=== PATIENT | male | born 1935 | race Caucasian/White ===

== ENCOUNTER 2016-12-08 21:09 | Emergency (ER) | payer OTHER ==
[2016-12-08 22:31] LABS: HEMOGLOBIN 14.6 gm/dl (14.0-17.5); RED BLOOD COUNT 4.44 M/UL (4.20-5.50); WHITE BLOOD COUNT 13.2 K/UL (4.5-11.0)
== END 2016-12-09 02:50 | disposition home or self-care (01) ==
LOC: ER1 21:09
PROVIDERS: Family Medicine
DX: K80.20 Calculus of gallbladder without cholecystitis without obstruction (principal); E11.22 Type 2 diabetes mellitus with diabetic chronic kidney disease; N18.9 Chronic kidney disease, unspecified; Z86.79 Personal history of other diseases of the circulatory system; Z88.6 Allergy status to analgesic agent; Z79.899 Other long term (current) drug therapy
CPT/HCPCS: 36415; 80053; 81001; 82150; 82550; 82553; 83605; 83690; 83874; 84484; 85025; 93005; 99284

== ENCOUNTER → 2017-01-27 | Outpatient (CLI) | payer OTHER | LOC: LAB 11:49 | PROVIDERS: Nurse Practitioner Family | DX: I48.91 Unspecified atrial fibrillation (principal) | CPT/HCPCS: 36415; 80053 ==

== ENCOUNTER 2020-11-19 10:07 | Observation (INO) | payer MEDICARE ==
[~2020-11-19] VITALS: Ht 167.6 cm; Wt 72.3 kg
[~2020-11-19 10:07] MED LIST: COREG 25MG TAB25 MG PO; ELIQUIS2.5 MG PO; FLOMAX 0.4 MG0.4 MG PO; LASIX40 MG PO; MEDROL DOSEPAK 24 MG PO; NITRO-TIME2.5 MG PO; NITROGLYCERIN0.4 MG SL; NOVOLOG100 UNIT/1 SC; PRINIVIL10 MG PO; TOBRADEX EYE O3.5 GM EYELF; VALTREX 500 MG500 MG PO; VIBRAMYCIN100 MG PO; VITAMIN D21250 MCG PO; ZANTAC 150 MG150 MG PO; ZOCOR10 MG PO
[2020-11-19] MEDS ORDERED: SYNTHROID100 MCG PO (11:49)
[2020-11-19] MEDS ORDERED: LANTUS100 UNIT/1 SC (11:53)
[2020-11-19 11:55] LABS: HEMOGLOBIN 16.5 gm/dl (14.0-17.5); RED BLOOD COUNT 4.84 M/UL (4.20-5.50); WHITE BLOOD COUNT 10.6 K/UL (4.5-11.0)
[2020-11-19] MEDS ORDERED: CLARITIN10 MG PO (15:41)
[2020-11-19] MEDS ORDERED: ARTIFICIAL TEAR15 M6 EYEBOTH (15:41)
[2020-11-19] MEDS ORDERED: LASIX20 MG PO (15:41)
[2020-11-19] MEDS ORDERED: NOVOLOG100 UNIT/1 SC (15:42)
[2020-11-19] MEDS ORDERED: SYMBICORT 16010.2 GM INH (15:43)
[2020-11-19] MEDS ORDERED: SENNA8.6 MG PO (15:43)
[2020-11-19] MEDS ORDERED: ALBUTEROL0.63 MG/3 INH (15:44)
[2020-11-20 06:26] LABS: RED BLOOD COUNT 4.75 M/UL (4.20-5.50); WHITE BLOOD COUNT 11.2 K/UL (4.5-11.0)
[2020-11-20 15:22] LABS: HEMOGLOBIN 15.5 gm/dl (14.0-17.5); RED BLOOD COUNT 4.58 M/UL (4.20-5.50); WHITE BLOOD COUNT 10.6 K/UL (4.5-11.0)
== END 2020-11-21 13:13 | disposition home or self-care (01) ==
LOC: ER1 10:07 → M/S 15:17 → CDU 15:17 → M/S 15:17
PROVIDERS: Physician Assistant Medical; Student in an Organized Health Care Education/Training Program; ADMIT Internal Medicine Infectious Disease
DX: I49.3 Ventricular premature depolarization (principal); I47.2 Ventricular tachycardia; I49.5 Sick sinus syndrome; N17.9 Acute kidney failure, unspecified; I13.0 Hypertensive heart and chronic kidney disease with heart failure and stage 1 through stage 4 chronic kidney disease, or unspecified chronic kidney disease; E11.22 Type 2 diabetes mellitus with diabetic chronic kidney disease; N18.30 Chronic kidney disease, stage 3 unspecified; I50.32 Chronic diastolic (congestive) heart failure; R77.8 Other specified abnormalities of plasma proteins; I25.10 Atherosclerotic heart disease of native coronary artery without angina pectoris; E78.5 Hyperlipidemia, unspecified; Z95.1 Presence of aortocoronary bypass graft; Z95.5 Presence of coronary angioplasty implant and graft; Z88.1 Allergy status to other antibiotic agents; Z88.8 Allergy status to other drugs, medicaments and biological substances; Z79.01 Long term (current) use of anticoagulants; Z79.4 Long term (current) use of insulin; Z79.899 Other long term (current) drug therapy; Z79.891 Long term (current) use of opiate analgesic; Z95.0 Presence of cardiac pacemaker; Z20.822 Contact with and (suspected) exposure to COVID-19
CPT/HCPCS: 36415; 71045; 80048; 80053; 82550; 82553; 82962; 83735; 83874; 84100; 84443; 84484; 85025; 85027; 85610; 85730; 93005; 94640; 94664; 94760; 96372; 96374; 99285; G0378; U0002

== ENCOUNTER 2021-05-18 16:08 | Inpatient (IN) | payer MEDICARE ==
[~2021-05-18] VITALS: Ht 167.6 cm; Wt 76.4 kg
[~2021-05-18 16:08] MED LIST changes: +ARTIFICIAL TEAR15 M6 EYEBOTH; +CLARITIN10 MG PO; +LANTUS100 UNIT/1 SC; -NITRO-TIME2.5 MG PO; -PRINIVIL10 MG PO; +SENNA8.6 MG PO; +SYMBICORT 16010.2 GM INH; +SYNTHROID100 MCG PO
[2021-05-18 16:47] LABS: RED BLOOD COUNT 4.74 M/UL (4.20-5.50); WHITE BLOOD COUNT 10.9 K/UL (4.5-11.0)
[2021-05-19 01:37] LABS: HEMOGLOBIN 16.1 gm/dl (14.0-17.5); RED BLOOD COUNT 4.73 M/UL (4.20-5.50); WHITE BLOOD COUNT 10.7 K/UL (4.5-11.0)
[2021-05-19] MEDS ORDERED: LISINOPRIL5 MG PO (11:49)
[2021-05-19] MEDS ORDERED: LASIX 40 MG TAB40 MG PO (15:41)
[2021-05-19] MEDS ORDERED: ALBUTEROL2.5 MG/3 M NEB (15:44)
[2021-05-19] MEDS ORDERED: FUROSEMIDE40 MG PO (19:12)
[2021-05-19] MEDS ORDERED: AMIODARONE HCL200 MG PO (19:14)
[2021-05-20 02:13] LABS: HEMOGLOBIN 16.2 gm/dl (14.0-17.5); RED BLOOD COUNT 4.78 M/UL (4.20-5.50)
[2021-05-20 02:19] LABS: WHITE BLOOD COUNT 16.9 K/UL (4.5-11.0)
[2021-05-20] MEDS ORDERED: CATAPRES 0.1MG0.1 MG PO (10:37)
[2021-05-20] MEDS ORDERED: KETOCONAZOLE15 GM TP (10:39)
[2021-05-20] MEDS ORDERED: COLACE100 MG PO (10:39)
[2021-05-20] MEDS ORDERED: MELATONIN10 M2 PO (10:40)
[2021-05-20] MEDS ORDERED: VALACYCLOVIR500 MG PO (10:41)
[2021-05-20] MEDS ORDERED: MICONAZOLE100 GM TP (10:43)
[2021-05-20] MEDS ORDERED: SODIUM CHLORIDE15 M1 EYELF (10:47)
[2021-05-20] MEDS ORDERED: NITRO-TIME2.5 MG PO (17:16)
[2021-05-21 03:45] LABS: HEMOGLOBIN 15.3 gm/dl (14.0-17.5); RED BLOOD COUNT 4.59 M/UL (4.20-5.50); WHITE BLOOD COUNT 15.6 K/UL (4.5-11.0)
[2021-05-22 07:43] LABS: HEMOGLOBIN 13.9 gm/dl (14.0-17.5); RED BLOOD COUNT 4.35 M/UL (4.20-5.50)
[2021-05-22] MEDS ORDERED: FUROSEMIDE40 MG PO (16:32)
[2021-05-22] MEDS ORDERED: AZITHROMYCIN250 MG PO (16:32)
[2021-05-22] MEDS ORDERED: AUGMENTIN 875-1 EACH PO (16:32)
== END 2021-05-22 17:51 | disposition home or self-care (01) | DRG 177 ==
LOC: ER1 16:08 → M/S 17:43 → CDU 17:43 → M/S 17:43
PROVIDERS: Emergency Medicine; Internal Medicine; Physician Assistant Medical; ADMIT Internal Medicine
PROC: B24BZZ4 Ultrasonography of Heart with Aorta, Transesophageal (ICD-10-PCS; principal; 2021-05-19)
DX: J69.0 Pneumonitis due to inhalation of food and vomit (principal); J96.21 Acute and chronic respiratory failure with hypoxia; Z20.822 Contact with and (suspected) exposure to COVID-19; Z51.5 Encounter for palliative care; I50.33 Acute on chronic diastolic (congestive) heart failure; I24.9 Acute ischemic heart disease, unspecified; I12.0 Hypertensive chronic kidney disease with stage 5 chronic kidney disease or end stage renal disease; J84.9 Interstitial pulmonary disease, unspecified; I87.8 Other specified disorders of veins; I48.0 Paroxysmal atrial fibrillation; R53.81 Other malaise; K21.9 Gastro-esophageal reflux disease without esophagitis; E03.9 Hypothyroidism, unspecified; I49.5 Sick sinus syndrome; I25.10 Atherosclerotic heart disease of native coronary artery without angina pectoris; Z95.1 Presence of aortocoronary bypass graft; Z95.0 Presence of cardiac pacemaker; Z79.82 Long term (current) use of aspirin
CPT/HCPCS: ECHO; 36415; 71045; 78452; 80048; 80053; 82550; 82553; 82962; 83036; 83690; 83735; 83874; 83880; 84100; 84484; 85025; 85027; 85610; 85730; 87081; 93005; 93017; 93306; 94640; 94664; 94760; 96365; 96366; 96375; 96376; 97110-GP-CQ; 97116-GP-CQ; 97162; 99285; A9502; G0378; J1335; J1644; J1940; J2785; J3475; U0002

== ENCOUNTER → 2021-07-01 | Outpatient (CLI) | payer MEDICARE ==
[~2021-07-01] MED LIST changes: +ALBUTEROL2.5 MG/3 M NEB; +AMIODARONE HCL200 MG PO; +AUGMENTIN 875-1 EACH PO; +AZITHROMYCIN250 MG PO; +CATAPRES 0.1MG0.1 MG PO; +COLACE100 MG PO; +FUROSEMIDE40 MG PO; +KETOCONAZOLE15 GM TP; +LASIX 40 MG TAB40 MG PO; +LISINOPRIL5 MG PO; +MELATONIN10 M2 PO; +MICONAZOLE100 GM TP; +NITRO-TIME2.5 MG PO; +SODIUM CHLORIDE15 M1 EYELF; +VALACYCLOVIR500 MG PO
== END ==
LOC: KOH-I 10:08
DX: J84.112 Idiopathic pulmonary fibrosis (principal)
CPT/HCPCS: 71250

== ENCOUNTER → 2021-07-06 | Outpatient (CLI) | payer MEDICARE | LOC: RT 11:36 | DX: R09.02 Hypoxemia (principal) | CPT/HCPCS: 36600; 82803 ==

== ENCOUNTER 2021-09-29 23:01 | Emergency (ER) | payer MEDICARE ==
[~2021-09-29] VITALS: Ht 167.6 cm; Wt 71.7 kg
[~2021-09-29 23:01] MED LIST changes: -LANTUS100 UNIT/1 SC; +LANTUS100 UNIT/1 SQ; -MELATONIN10 M2 PO; +MELATONIN5 M2 PO; +NOVOLOG100 UNIT/1 SQ; -SODIUM CHLORIDE15 M1 EYELF; +SODIUM CHLORIDE15 M1 OS
[2021-09-30 01:48] LABS: HEMOGLOBIN 13.7 gm/dl (14.0-17.5); RED BLOOD COUNT 4.27 M/UL (4.20-5.50); WHITE BLOOD COUNT 10.5 K/UL (4.5-11.0)
[2021-09-30] MEDS ORDERED: CRESTOR10 MG PO (11:22)
[2021-09-30] MEDS ORDERED: METAMUCIL FIBE3.4 GM PO (11:23)
[2021-09-30] MEDS ORDERED: PREDNISONE10 MG PO (11:24)
[2021-09-30] MEDS ORDERED: FUROSEMIDE40 MG PO (11:25)
[2021-09-30] MEDS ORDERED: FAMOTIDINE10 MG PO (11:26)
[2021-10-01 04:38] LABS: HEMOGLOBIN 13.4 gm/dl (14.0-17.5); RED BLOOD COUNT 4.32 M/UL (4.20-5.50); WHITE BLOOD COUNT 10.1 K/UL (4.5-11.0)
[2021-10-01] MEDS ORDERED: COREG12.5 MG PO (15:01)
[2021-10-01] MEDS ORDERED: LISINOPRIL2.5 MG PO (15:01)
== END 2021-10-01 16:00 | disposition home or self-care (01) ==
LOC: ER1 23:01 → CDU 09-30 05:15 → ER1 09-30 05:15
PROVIDERS: Internal Medicine; Physician Assistant
DX: I11.0 Hypertensive heart disease with heart failure (principal); I50.9 Heart failure, unspecified; N17.9 Acute kidney failure, unspecified; R55 Syncope and collapse; R53.1 Weakness; I25.10 Atherosclerotic heart disease of native coronary artery without angina pectoris; I25.2 Old myocardial infarction; E11.9 Type 2 diabetes mellitus without complications; E78.5 Hyperlipidemia, unspecified; Z95.0 Presence of cardiac pacemaker; Z20.822 Contact with and (suspected) exposure to COVID-19
CPT/HCPCS: 0240U; 36600; 70450; 71045; 80048; 80053; 82550; 82553; 82803; 82962; 83605; 83735; 83874; 83880; 84484; 85025; 85610; 85730; 87040; 93005; 94640; 94664; 94760; 99285